=== PATIENT | female | born 1985 | race Hispanic/Latino ===

== ENCOUNTER → 2024-04-26 | Outpatient (CLI) | payer MEDICAID ==
--- NOTE | 2024-04-26 12:26 | HMCIMG ---
Exam Type: CHEST 1VW Clinical Information: MORID OBESITY, ACID REFLUX Comparison: None Findings: The lungs are clear of infiltrates. The heart is normal in size. The bony and soft tissue structures of the chest are unremarkable. Impression: Clear lungs.
== END | disposition home or self-care (01) ==
LOC: LAB 08:25
PROVIDERS: ATTEND Surgery
DX: E66.01 Morbid (severe) obesity due to excess calories (principal)
CPT/HCPCS: 36415; 71045; 80053; 80061; 82306; 82607; 82728; 82746; 83036; 83525; 83540; 83550; 83735; 84207; 84425; 84436; 84443; 84446; 84481; 84590; 84630; 85025; 93005; 97802

== ENCOUNTER → 2024-04-26 | Outpatient (CLI) | payer OTHER ==
[~2024-04-26] VITALS: Ht 2.5 cm; Wt 107.3 kg
--- NOTE | 2024-04-26 09:40 | EKG ---
[facility] Test Date: 2024-04-26 Test Time: 09:36:47 Pat Name: TRISTA COLLINS Department: [facility] Room: Gender: F Form Presser: [id number] : 1985 Requested By: DARIUS VILLATORO Order Number: [id number] Reading MD: Dallas Hawthorne Measurements Intervals [place] Rate: 72 P: 40 [place]: 131 QRS: 69 QRSD: 90 T: 34 QT: 396 QTc: 433 Interpretive Statements Sinus rhythm No previous ECG available for comparison Electronically Signed On 04-29-2024 18:28:51 CDT by Dallas Hawthorne Please click the below link to view image of tracing.
[2024-04-26 10:02] LABS: BASOPHILS # (AUTO) 0.03 K/uL (0.00-0.20); BASOPHILS % (AUTO) 0.4 % (0.0-5.0); EOSINOPHILS # (AUTO) 0.04 K/uL (0.00-0.70); EOSINOPHILS % (AUTO) 0.6 % (0.0-8.0); HEMATOCRIT 38.4 % (36-48); IMMATURE GRANULOCYTE ABSOLUTE 0.03 K/uL (0-1); LYMPHOCYTES % (AUTO) 29.1 % (21.0-51.0); MEAN CORPUSCULAR HEMOGLOBIN 28.3 pg (27.0-33.0); MEAN CORPUSCULAR HGB CONC 32.8 g/dL (32.0-36.0); MEAN CORPUSCULAR VOLUME 86.3 fL (79-99); MONOCYTES # (AUTO) 0.3 K/uL (0.1-1.0); MONOCYTES % (AUTO) 4.2 % (3.0-13.0); NEUTROPHILS # (AUTO) 4.5 K/uL (1.8-7.7); NEUTROPHILS % (AUTO) 65.3 % (40.0-77.0); PLATELET COUNT (AUTO) 142 K/uL (130-400); RED BLOOD CELL COUNT(AUTO) 4.45 MIL/uL (4.00-5.50); RED CELL DISTRIBUTION WIDTH 13.3 % (11.0-15.5); WHITE BLOOD COUNT (AUTO) 6.9 K/uL (4.8-10.8)
[2024-04-26 10:19] LABS: HEMOGLOBIN A1C 5.6 % (4.0-6.0)
[2024-04-26 10:21] LABS: % IRON SATURATION 23.7 % (22-44)
[2024-04-26 10:46] LABS: ALBUMIN 3.5 g/dL (3.5-5.0); BILIRUBIN,TOTAL 0.6 mg/dL (0.2-1.0); CREATININE 0.6 mg/dL (0.5-1.0); MAGNESIUM 1.9 mg/dL (1.80-2.40); T4 (THYROXINE) 6.6 ug/dL (4.7-13.3); THYROID STIMULATING HORMONE 1.8 uIU/mL (0.36-3.74); TOTAL PROTEIN, SERUM 7.1 g/dL (6.0-8.3)
--- NOTE | 2024-04-26 12:16 | NUR ---
BARIATRIC INITIAL ASSESSMENT VISIT 1 OF 6 Wt: 236.6 lbs DOS: 04/26/24 Pt's baby present during visit. Pt started crying during procedure. Pt seeking bariatric procedure to aid in wt loss and improve medical health conditions. Pt reported she heard of procedure from MD, has struggled with back pain after her spinal procedure, has struggled with wt all her life, has tried FAD diets, exercise and diet pills to lose wt, CBW has been for the past year, mother and father side struggle with wt, has arthritis, did own research about procedure, baby is not picky eater, lives with spouse, does curbside, Pt has back pain at night, sister had bariatric procedure 1 year ago, has appointment to see neurologist, wants to see physical therapy again, has exercise limitations due to back sx hx, usually has 2 meals + 4 snacks per day, consumes soda daily, has sweet or salty snacks 2-3 x per day, fast food 4 x per week, takes 10 min to eat, noticed emotional eating recently, plans to start therapy again, feels frustrated with back pain, hx of 4 miscarriages, no plan to become , does not work, does not travel often, has means to purchase healthy food, has disrupted sleep, sleeps 4-5 hrs per day, has been doing laying/seated exercises daily, does not have a support system, does not want to notify family members or friends until procedure date is closer, no goal wt, wants to weigh less for less back pain. RD conducted 24 hr recall: Breakfast: chinese toast + hash browns Lunch: skipped Dinner: subway philli steak +pepperoni + provolone + gatorade Snack(s): hot cheetos + ice cream+ candy+ pickles RD reviewed portion sizes with pt, reviewed healthy plate, informed Pt of importance of protein intake, demonstrated DM chart, reviewed carbohydrate sources and carbohydrate counting, provided and an estimate for estimated carbohydrate intake per day. Pt completed wt management program diet readiness questionnaire. Results are as follows: Section 1: Goals and Attitudes. Score of 24. The path is clear with respect to goals and attitudes. Sections 2: Hunger and Eating cues. Score 10.Some or most of your eating may be in response to thinking about food or exposing yourself to temptations to eat. Think of ways to minimize your exposure to temptations, so that you eat only in response to physical hunger. Section 3: Control over Eating. Score 12.You may be prone to overeat after an event breaks your control or throws you off track. Your reaction to these problem-causing eating events can be improved Section 4: Mone Eating and Purging: Score 14.You show signs of having a potentially serious eating problem. See a counselor experienced in evaluating eating disorders right away. Section 5: Emotional Eating: Score 13.Emotional ups and downs can stimulate your eating. Try to deal with feeling that trigger the eating and find other ways to express them. Section 6: Exercise Patterns and Attitudes: Score 10.You are probably not exercising as regularly as you should. Determine whether your attitudes about exercise are blocking your way, then change what you must and put on those walking shoes. Goals Established: -MVI QD -decrease soda consumption -seated exercises 5 mins QD Pt in agreement with goals and is aware she will need to cut carbonated beverages, sweets and caffeine prior to surgery. Recommended for Pt to complete visits with Dietitian to prepare for bariatric procedure. Thank you for this visit. Addendum: 04/26/24 at [address] Amended: Links added.
[2024-04-28 11:12] LABS: INSULIN, RANDOM OR FASTING 16.5 uIU/mL (2.6-24.9)
== END | disposition home or self-care (01) ==
LOC: DTH 08:29
PROVIDERS: ATTEND Surgery
DX: E66.01 Morbid (severe) obesity due to excess calories (principal); I10 Essential (primary) hypertension; G47.33 Obstructive sleep apnea (adult) (pediatric); K21.9 Gastro-esophageal reflux disease without esophagitis; E78.00 Pure hypercholesterolemia, unspecified; K76.0 Fatty (change of) liver, not elsewhere classified; E66.1 Drug-induced obesity; M19.90 Unspecified osteoarthritis, unspecified site; Z71.3 Dietary counseling and surveillance; Z68.41 Body mass index [BMI] 40.0-44.9, adult
CPT/HCPCS: 36415; 80053; 80061; 82306; 82607; 82728; 82746; 83036; 83525; 83540; 83550; 83735; 84207; 84425; 84436; 84443; 84446; 84481; 84590; 84630; 85025; 93005; 97802

== ENCOUNTER → 2024-06-11 | Outpatient (CLI) | payer MEDICAID ==
[2024-06-11 21:54] VITALS: PULSE 64; RESP 12
[2024-06-11 22:30] VITALS: PULSE 74; RESP 12
[2024-06-11 23:00] VITALS: PULSE 84; RESP 12
[2024-06-11 23:30] VITALS: PULSE 72; RESP 12
[2024-06-11 23:58] VITALS: PULSE 79; RESP 12
[2024-06-12] VITALS (12 sets, daily range): PULSE 62–82; RESP 7–17
== END | disposition home or self-care (01) ==
LOC: SLP 20:08
PROVIDERS: ATTEND Internal Medicine Pulmonary Disease
DX: G47.33 Obstructive sleep apnea (adult) (pediatric) (principal); R06.83 Snoring; G47.10 Hypersomnia, unspecified; R00.0 Tachycardia, unspecified; E66.9 Obesity, unspecified; R53.83 Other fatigue
CPT/HCPCS: 95811

== ENCOUNTER → 2024-06-14 | Outpatient (CLI) | payer OTHER ==
--- NOTE | 2024-06-14 11:00 | NUR ---
BARIATRIC FOLLOW UP NOTE VISIT 3 OF 6 Wt: 232 LBS DOS: 06/14/24 Baby present during visit. Upon follow up visit, pt presents with a 1 lb wt gain. Pt still working with , with pre- QD, has had a lot of appointments, has not had a visit with PCP for vit. D, no water training, decreased carbonation, has been drinking protein shakes. RD conducted 24 hr food recall. Breakfast: potato + egg + nopales + 1 tortilla Lunch: skipped Dinner: beef + 1 tortilla +zevia RD reviewed fiber requirements, food high in fiber, ways to decrease LDL levels, encouraged pt to decrease soft drink (even sugar free) consumption secondary to carbonation and caffeine, pt verbalized understanding. RD and pt established goals for next month: -no skipping meals -walking 1 hr QD -increase fiber in meals Thank you for this visit Addendum: 06/14/24 at [address] Amended: Links added.
== END | disposition home or self-care (01) ==
LOC: EDUNIT# 10:00 → DTH 10:19
PROVIDERS: ATTEND Surgery
DX: E66.01 Morbid (severe) obesity due to excess calories (principal); I10 Essential (primary) hypertension; K21.9 Gastro-esophageal reflux disease without esophagitis; K76.0 Fatty (change of) liver, not elsewhere classified; E78.00 Pure hypercholesterolemia, unspecified; Z71.3 Dietary counseling and surveillance
CPT/HCPCS: 97803

== ENCOUNTER → 2024-07-17 | Outpatient (CLI) | payer OTHER ==
--- NOTE | 2024-07-17 11:27 | NUR ---
FOLLOW PRE-OP/POST-OP DIETARY RECOMMENDATIONS BARIATRIC PRE-OP VISIT VISIT 4 OF 6 Wt: 232 lbs DOS: 07/17/24 Upon follow up visit, pt presented with no wt change. Pt reported her surgery date is August 02, has started the FLD as instructed by her surgeon, MANPREET QD, walking 2x per day QD total of 25 mins, has been talking to senior project coordinator. RD reviewed educational material for pre-op and post-op diet recommendations with detailed phases of diet post-op. Pt was informed of importance of lifelong vitamin/mineral supplementation, choosing protein first during meals (pt was educated on higher protein requirements), choosing low calorie, sugar free, carbonated free and caffeine beverages. RD also informed pt on lifelong commitment to exercise and dietary recommendations for optimal success post surgery. RD encouraged getting blood work every 3 to 6 months, including B-vitamins, Pt verbalized understanding. RD informed Pt on moving around after procedure to prevent DVT, Pt verbalized understanding. Pt was encouraged to contact RD as questions arise and to attend support groups. RD provided protein supplement recommendations along with Bariatric Vitamin recommendations via graphics to patient. Pt with several questions, all of which were answered. Fair compliance suspected. Pt will benefit from outpatient bariatric dietitian follow up post procedure. Pt to follow up with PCP for labs. Thank you for this visit. Addendum: 07/17/24 at [address] Amended: Links added.
== END | disposition home or self-care (01) ==
LOC: EDUNIT# 08:00 → DTH 10:29
PROVIDERS: ATTEND Surgery
DX: E66.01 Morbid (severe) obesity due to excess calories (principal); I10 Essential (primary) hypertension; G47.33 Obstructive sleep apnea (adult) (pediatric); K21.9 Gastro-esophageal reflux disease without esophagitis; E78.00 Pure hypercholesterolemia, unspecified; K76.0 Fatty (change of) liver, not elsewhere classified; Z71.3 Dietary counseling and surveillance
CPT/HCPCS: 97803

== ENCOUNTER 2024-08-18 13:53 | Emergency (ER) | payer MEDICAID ==
[~2024-08-18] VITALS: Ht 154.9 cm; Wt 96.2 kg
[~2024-08-18 13:53] MED LIST: FOLIC ACID PO; MVI PO
[2024-08-18] MEDS ORDERED: CEPH500B PO (16:17)
--- NOTE | 2024-08-18 16:17 | ERN ---
General Chief Complaint: Lower Extremity Pain/Injury Stated Complaint: LEG PAIN Time Seen by MD: 13:55 Source: patient History of Present Illness Initial Comments Patient is a 38-year-old female coming in to be evaluated for left lower extremity mild swelling. Per patient she was concerned that she might have a clots since he recently had a gastric bypass. Patient states that for surgeon advised her proper follow up to rule out a DVT. Allergies: Coded Allergies: No Known Drug Allergies (Unverified Allergy, Unknown, 07/31/24) Home Meds Reported Medications [Mvi + Folic Acid] No Conflict Check, 1 TAB PO DAILY 07/31/24 Past Medical History Past Medical History: No Pertinent History Past Surgical History: Other, Bariatric Surgery Surgical History Other: csection, spinal fusion ROS Dictation CONSTITUTIONAL: No chills, no fever, no weakness, no diaphoresis, no malaise. HEAD/FACE: No signs of trauma. EENT: No eye pain, no blurred vision, no tearing, no double vision, no ear pain, no ear discharge, no nose pain, no nasal congestion, no throat pain, no throat swelling, no mouth pain. RESPIRATORY: No cough, no orthopnea, no SOB, no stridor, no wheezing. CARDIOVASCULAR: No chest pain, no edema, no palpitations, no syncope. GASTROINTESTINAL/ABDOMINAL: No abdominal pain, no constipation, no diarrhea, no nausea, no vomiting. GENITOURINARY: No abnormal discharge, no dysuria, no frequent urination, no hematuria. No complaints of pain in the genitals. MUSCULOSKELETAL: No back pain, no gout, no joint pain, no joint swelling, muscle pain, no muscle stiffness, no neck pain. INTEGUMENTARY: No change in color, no change in hair/nails, no dryness, no lesion, no lumps, no rash. NEUROLOGICAL/PSYCH: No anxiety, not depressed, no emotional problem, no headache, no numbness, no pre-existing deficit, no history of seizures, no tremors, no weakness. HEMATOLOGIC/LYMPHATIC: Not anemic, no history of blood clots, no apparent bleeding, no bruising, glands not swollen. All Systems Negative, Except as Noted. Physical Exam Physical Exam Dictation VITAL SIGNS: Reviewed. GENERAL APPEARANCE: Alert, oriented x3, no acute distress, obese. HEAD AND FACE: Non-traumatic. EYES: PERRL, pink conjunctivas, eyelid no trauma, anterior chamber clear. EARS: Pinnas intact and no signs of trauma or erythema. Ear canals clear and no discharge. TMs no erythema. NOSE: No discharge, no bleeding. OROPHARYNX: Mouth normal, teeth no caries, tongue pink. Pharynx clear, no erythema. Tonsils no exudates, no abscesses noted. Mucous membrane moist. NECK: Supple, non-tender, no thyromegaly, no masses, no JVD, no bruits. BREAST: Deferred. CHEST: No tenderness, no crepitus, no paradoxical movement, no retractions. LUNGS: Clear, well-ventilated, symmetric, no rales, no wheezing, no rhonchi, no stridor, good breath sounds bilaterally. HEART: Regular rate, regular rhythm, no murmur, no gallops. VASCULAR: No peripheral edema. ABDOMEN: Soft, positive bowel sounds, nondistended, no guarding, nontender, no rebound, no masses no hepatomegaly, no splenomegaly, no Lopez's sign, no hernias. RECTAL: Deferred. GENITAL: Deferred. NEUROLOGICAL: Normal speech, gross motor function intact, gross sensory function intact. MUSCULOSKELETAL: Neck nontender, full range of motion, back nontender, full range of motion. EXTREMITIES: Nontender, full range of motion. Left lower extremity tenderness on palpation SKIN: Color pink, dry, no turgor, no rash, no lacerations, no abrasions, no contusions. LYMPHATICS: Deferred. Results Laboratory and Microbiology Labs Reviewed?: Yes EKG/XRAY/US/CT/MRI Ultrasound Comment Ultrasound lower extremity- venous and arterial negative for acute findings. MDM MDM: Differential diagnosis: DVT, arteriosclerosis, cellulitis, Rationale: Tests considered and ordered secondary to shared decision making include: Previous outside records reviewed: Old ER visits. Risk of complication and/or morbidity or mortality of patient management: None Medications-Per medication reconciliation Need for hospitalization: Patient does not meet criteria for hospitalization. Patient is a 38-year-old female coming in to be evaluated for lower left extremity pain. Patient was concerned because she recently had surgery and surgeon sent her in to have ultrasound performed to rule out DVT. Ultrasound did not confirm acute findings. Based on the findings patient will be discharged with a diagnosis of mild cellulitis. ED Course Orders Procedure Category Date Status Time Us Arterial Unila Low US 08/18/24 Taken Ext Dupl 14:20 Us Venous Doppler US 08/18/24 Taken Unilateral 15:33 Vital Signs Date Time Temp Pulse Resp B/P (MAP) Pulse Ox O2 Delivery O2 Flow Rate FiO2 08/18/24 16:01 98.2 69 19 139/85 100 Room Air* 0 21 08/18/24 15:01 98.4 73 17 140/87 99 Room Air* 0 21 08/18/24 14:00 98.6 74 16 147/93 100 Room Air* 0 21 08/18/24 13:55 98.6 74 16 147/93 100 Room Air 0 DX & DISP Disposition: Discharge Departure Impression: Primary Impression: Lower extremity cellulitis Condition: Stable Scripts Cephalexin Monohydrate (Keflex) 500 Mg Cap 1 CAP PO TID for 10 Days, #30 CAP 0 Refills Prov: KELBY ESPINOSA MD 08/18/24 Additional Instructions: FOLLOW-UP WITH PRIMARY CARE PROVIDER IN 1 TO 2 DAYS. TAKE MEDICATIONS DI RECTED HERE IN THE EMERGENCY ROOM. OKAY TO CONTINUE HOME MEDICATIONS UNLESS OTHERWISE DISCUSSED DURING YOUR VISIT IN THE EMERGENCY ROOM TODAY. RETURN TO YOUR NEAREST EMERGENCY ROOM IF SYMPTOMS WORSEN OR IF THERE IS NO IMPROVEMENT. CALL 911 IF YOU NEED IMMEDIATE ASSISTANCE. TAKE TYLENOL [id number] NEEDED AND IF NO CONTRAINDICATIONS ARE PRESENT. INCREASE ORAL HYDRATION. A WOUND CULTURE OR URINE CULTURE WAS ORDERED HERE IN THE EMERGENCY ROOM DEPARTMENT PLEASE FOLLOW-UP WITH PRIMARY CARE PROVIDER AND ADVISE THEM TO GET REPORTS FROM OUR FACILITY. IF YOU HAD ANY SAMANTHA WRAP/SPLINTS THAT WERE APPLIED HERE, PLEASE DO NOT REMOVE THEM UNTIL YOU SEE YOUR PRIMARY CARE OR SPECIALTY. Referrals: Referrals: MATTHEW HUSSEIN (PCP) Time of Disposition: 16:16 KELBY ESPINOSA MD Aug 18, 2024 16:17
--- NOTE | 2024-08-18 16:25 | HMCIMG ---
EXAM: US for Deep Venous Thrombosis, left Lower Extremity. CLINICAL HISTORY: Leg Pain and Swelling TECHNIQUE: Real-time ultrasound scan of the veins of the left lower extremity with color Doppler flow, spectral waveform analysis and compression. COMPARISON: None provided. FINDINGS: DEEP VEINS: The common femoral, superficial femoral, and popliteal veins are echolucent and compressible. There is normal color Doppler flow throughout. The visualized calf veins appear patent. SOFT TISSUES: No popliteal fossa cyst or other abnormalities. IMPRESSION: No deep venous thrombosis evident on left lower extremity examination. /[place]
[2024-08-18 16:36] VITALS: BP 135/81; PULSE 62; RESP 17; TEMP 98; O2SAT 100
--- NOTE | 2024-08-18 16:59 | HMCIMG ---
EXAM: US Duplex left Lower Extremity Arteries. CLINICAL HISTORY: left lower extremity swelling TECHNIQUE: Real-time ultrasound scan of the arteries of the left lower extremity with 2-D grayscale, color Doppler flow and spectral waveform analysis. COMPARISON: None provided. FINDINGS: COMMON FEMORAL ARTERY: No occlusion or significant stenosis. SUPERFICIAL FEMORAL ARTERY: No occlusion or significant stenosis. POPLITEAL ARTERY: No occlusion or significant stenosis. CALF ARTERIES: No occlusion or significant stenosis. Triphasic waveforms within all visualized left lower extremity arteries. IMPRESSION: 1. No acute arterial abnormality in the left lower extremity. /[place]
== END 2024-08-18 16:40 | disposition home or self-care (01) ==
LOC: EDH 13:53
DX: L03.116 Cellulitis of left lower limb (principal); M79.662 Pain in left lower leg; Z98.84 Bariatric surgery status
CPT/HCPCS: 93926; 93971; 99284